=== PATIENT | female | born 1975 | race Caucasian/White ===

== ENCOUNTER → 2018-06-09 | Outpatient (CLI) | payer SELFPAY ==
[~2018-06-09] MED LIST: DOC100 PO; PER PO
--- NOTE | 2018-06-10 14:19 | RADIOLOGY IMAGING REPORT ---
FACILITY: [facility] - [place] PATIENT NAME: GISSEL MARSH : [id number] MR: [id number] V: [id number] EXAM DATE: [id number] ORDERING PHYSICIAN: JAKE CONLEY TECHNOLOGIST: Virgie Taylor PROCEDURE:BILATERAL DIGITAL SCREENING MAMMOGRAM WITH CAD ASSISTED INTERPRETATION & 3D TOMOSYNTHESIS COMPARISON:None. INDICATIONS:baseline FINDINGS: There are scattered areas of fibroglandular density throughout the breasts. There is a small asymmetry posterior to mid nipple line on the Right MLO view in the middle 1/3 for which Spot compression view is recommended. There is a nodular density in the lateral portion of the Left breast on the Left CC view at the junction of the anterior middle 1/3 best identified on Tomographic slice 38 for which Spot compression view is recommended this appears to be just inferior to midline on the Left MLO view and is best seen on Tomographic slice 25. Also in the Left MLO view in the posterior 1/3 posterior to mid nipple line is an ovoid area of increased density for which Spot compression view is recommended. DIAGNOSTIC CATEGORY 0--INCOMPLETE: NEED ADDITIONAL IMAGING EVALUATION. RECOMMENDATIONS: ADDITIONAL MAMMOGRAPHIC VIEWS REQUIRED: BILATERAL BREASTS. IMPRESSION: BIRADS 0: Incomplete. Additional views of both breasts recommended as described. Dictated by: Lisa Cuevas M.D. on 06/09/2018 at 14:41 Transcribed by: VISH on 06/09/2018 at 14:54 Approved by: Lisa Cuevas M.D. on 06/10/2018 at 14:18 [facility]
== END ==
LOC: MAMO 00:57
PROVIDERS: ATTEND Obstetrics & Gynecology
DX: R92.2 Inconclusive mammogram (principal)
CPT/HCPCS: 77063; 77067

== ENCOUNTER → 2018-06-25 | Outpatient (CLI) | payer SELFPAY ==
--- NOTE | 2018-06-27 11:25 | RADIOLOGY IMAGING REPORT ---
FACILITY: [facility] [place] PATIENT NAME: GISSEL MARSH : [id number] MR: [id number] V: [id number] EXAM DATE: [id number] ORDERING PHYSICIAN: JAKE CONLEY TECHNOLOGIST: Cassie Stewart PROCEDURE:BILATERAL DIAGNOSTIC DIGITAL MAMMOGRAM WITH CAD ASSISTED INTERPRETATION & 3D TOMOSYNTHESIS COMPARISON:Prior mammograms dated 06/09/18. INDICATIONS:abnormal screening mammo FINDINGS: Patient returns for a mediolateral view of the Left breast & spot compression views in the Left CC & MLO projections & Right MLO projection. The small asymmetry posterior to midnipple line on the recent MLO view appeared compressible & apparently represented a summation shadow. Redemonstrated is a small nodule density in the lateral inferior portion of the Left breast. This was shown today by sonography to represent a small lobular cyst. The small ovoid area of increased density in the posterior third of the Left breast on the prior Left MLO view posterior to midnipple line appeared compressible & apparently represented a summation shadow. DIAGNOSTIC CATEGORY 2--BENIGN FINDING. RECOMMENDATIONS: ROUTINE MAMMOGRAM AND CLINICAL EVALUATION. IMPRESSION: BIRADS 2: Benign finding. Small nodular density in the approximate 4 o'clock position of the Left breast was shown today sonographically to represent a cyst. No other mammographic abnormality is seen. Dictated by: Lisa Cuevas M.D. on 06/25/2018 at 16:52 Transcribed by: ANGELA on 06/27/2018 at 9:59 Approved by: Lisa Cuevas M.D. on 06/27/2018 at 11:23 [facility]
--- NOTE | 2018-06-27 11:25 | RADIOLOGY IMAGING REPORT ---
FACILITY: [facility] PATIENT NAME: GISSEL MARSH : [id number] MR: [id number] V: [id number] EXAM DATE: ORDERING PHYSICIAN: JAKE CONLEY TECHNOLOGIST: Leyla Ahumada RDMS(ABD,OBGYN,BR),RVT PROCEDURE:US LEFT BREAST COMPARISON:Today's diagnostic mammogram INDICATIONS:FURTHER EVAL FINDINGS: In the 3:30 position of the Left breast 2cm from the nipple there is a circumscribed slightly lobular cyst measuring 8 x 6 x 3mm which likely accounts for the mammographic findings. DIAGNOSTIC CATEGORY 2--BENIGN FINDING. RECOMMENDATIONS: ROUTINE MAMMOGRAM AND CLINICAL EVALUATION. IMPRESSION: BIRADS 2: Benign finding. Small cyst is identified in the 3:30 position of the Left breast which likely accounts for the mammographic findings. Dictated by: Lisa Cuevas M.D. on 06/25/2018 at 16:48 Transcribed by: ANGELA on 06/27/2018 at 10:02 Approved by: Lisa Cuevas M.D. on 06/27/2018 at 11:23 [facility]
== END ==
LOC: MAMO 00:30
PROVIDERS: ATTEND Obstetrics & Gynecology
DX: R92.8 Other abnormal and inconclusive findings on diagnostic imaging of breast (principal)
CPT/HCPCS: 77062; 77066